=== PATIENT | female | born 1950 ===

== ENCOUNTER 2017-10-31 23:47 | Observation (INO) | payer OTHER ==
[2017-11-01 01:32] LABS: BASO % 0.2 % (0.0-2.0); EOS # 0.2 K/uL (0.0-0.7); EOS % 1.7 % (0.0-4.0); HEMOGLOBIN 13.4 g/dL (12.0-16.0); LYMPH # 2.4 K/uL (1.0-4.3); MEAN CELL VOLUME 93.8 fl (81.0-99.0); MEAN CORPUSCULAR HEMOGLOBIN 31.1 pg (27.0-31.0); MEAN CORPUSCULAR HGB CONC 33.2 g/dL (33.0-37.0); MEAN PLATELET VOLUME 8.8 fl (7.2-11.7); MONO # 0.9 K/uL (0.0-0.8); MONO % 7.8 % (0.0-10.0); NEUT # 7.5 K/uL (1.8-7.0); NEUT % 68.3 % (50.0-75.0); NRBC % 0.1 % (0.0-0.0); RBC 4.32 Mil/uL (3.80-5.20); RED CELL DISTRIBUTION WIDTH 13.5 % (11.5-14.5); WHITE BLOOD COUNT 10.9 K/uL (4.8-10.8)
[2017-11-01 01:48] LABS: ALB/GLOB RATIO 1.1 (1.0-2.1); ALBUMIN 4.2 g/dL (3.5-5.0); ALT/SGPT 25 U/L (9-52); AST/SGOT 20 U/L (14-36); BLOOD UREA NITROGEN 9 mg/dl (7-17); CALCIUM 9.3 mg/dL (8.4-10.2); GFR AFRICAN-AMERICAN > 60; GFR NON-AFRICAN AMERICAN > 60
[2017-11-01] MEDS: Lactated Ringer's 500 ML IV SCH ×2 (01:54→03:22)
[2017-11-01] MEDS ORDERED: levoFLOXacin 500 mg in D5W 500 MG/100 ML BAG IVPB STA (02:41)
[2017-11-01] MEDS ORDERED: levoFLOXacin 500 mg in D5W 500 MG/100 ML BAG IVPB ONE (03:18)
[2017-11-01] MEDS ORDERED: Lactated Ringer's 500 ML IV STA (03:22)
--- NOTE | 2017-11-01 03:26 | ED PDOC ---
HPI: General Adult Time Seen by Provider: 11/01/17 00:39 Chief Complaint (Nursing): Cough, Cold, Congestion Chief Complaint (Provider): Flu-Like Symptoms History Per: Patient History/Exam Limitations: no limitations Onset/Duration Of Symptoms: Other (x1 week) Current Symptoms Are (Timing): Still Present Recently: Treated By A Physician Additional Complaint(s): 67 year old female presents to ED with complaints of flu-like symptoms x1 week and has a past medical history of HTN and diabetes mellitus. (+) fever, cough productive of green phlegm, and throat pain. Notes she was on a course of Amoxicillin that did not improve symptoms. PCP: None Past Medical History Reviewed: Historical Data, Nursing Documentation, Vital Signs Vital Signs: Last Vital Signs Temp 98.2 F 11/01/17 10:30 Pulse 52 L 11/01/17 10:30 Resp 15 11/01/17 10:30 BP 111/65 11/01/17 10:30 Pulse Ox 100 11/01/17 10:30 - Medical History PMH: Diabetes, HTN Denies: HIV, Chronic Kidney Disease - Family History Family History: States: Unknown Family Hx - Social History Current smoker - smoking cessation education provided: No Ex-Smoker (has not smoked in the last 12 months): No Alcohol: None Drugs: Denies - Home Medications Home Medications: Ambulatory Orders Medication Instructions Recorded Glimepiride [Amaryl] 4 mg PO QPM 11/01/17 Glimepiride [Amaryl] 8 mg PO DAILY 11/01/17 Levofloxacin [Levaquin] 750 mg PO DAILY #7 tablet 11/01/17 guaiFENesin/Codeine 10 ml PO ASDIR #100 udc 11/01/17 [Codeine/Guaifenesin 10 MG/5 Ml-100 MG/5 Ml 5] - Allergies Allergies/Adverse Reactions: Allergies Allergy/AdvReac Type Severity Reaction Status Date / Time No Known Allergies Allergy Verified 10/23/14 22:22 Review of Systems ROS Statement: Except As Marked, All Systems Reviewed And Found Negative Constitutional: Positive for: Fever ENT: Positive for: Throat Pain Respiratory: Positive for: Cough (productive of green phlegm) Physical Exam - Reviewed Nursing Documentation Reviewed: Yes Vital Signs Reviewed: Yes - Physical Exam Appears: Positive for: Non-toxic, No Acute Distress (Febrile) Skin: Positive for: Normal Color, Warm, Dry Eye Exam: Positive for: Normal appearance ENT: Positive for: Normal ENT Inspection Neck: Positive for: Normal, Painless ROM, Supple Cardiovascular/Chest: Positive for: Regular Rate, Rhythm. Negative for: Murmur Respiratory: Positive for: Crackles (bibasilar crackles). Negative for: Normal Breath Sounds, Respiratory Distress Gastrointestinal/Abdominal: Positive for: Soft. Negative for: Tenderness Neurologic/Psych: Positive for: Alert, Oriented. Negative for: Motor/Sensory Deficits - Laboratory Results Result Diagrams: 11/01/17 01:28 11/01/17 01:28 - ECG O2 Sat by Pulse Oximetry: 96 (RA) Pulse Ox Interpretation: Normal Medical Decision Making Medical Decision Makin Initial impression: flu-like symptoms Initial plan: * EKG * Labs * CXR * Lactated Ringers IV * Toradol 10mg IVP * Acetaminophen 975mg PO * Blood Cx * Accucheck * Influenza A B * Re-eval 0240 CXR right lower lobe infiltrate Patient will be admitted under Dr. Garcia (INPATIENT MED/SURG) for community acquired PNA. * BNP * Trop I * Levaquin 500mg in 100mL IVPB Scribe Attestation: Documented by Elly Baig acting as a scribe for Topher Lynch MD. DO Scribe Attestation: All medical record entries made by the Scribe were at my direction and personally dictated by me. I have reviewed the chart and agree that the record accurately reflects my personal performance of the history, physical exam, medical decision making, and the department course for this patient. I have also personally directed, reviewed, and agree with the discharge instructions and disposition. Disposition - Clinical Impression Clinical Impression: Pneumonia - Patient ED Disposition Is Patient to be Admitted: Yes (under Dr. Garcia) - Disposition Disposition Time: 03:30 Condition: FAIR - Pt Status Changed To: Hospital Disposition Of: Inpatient (INPATIENT MED/SURG) - Admit Certification Admit to Inpatient:: After my assessment, the patient will require hospitalization for at least two midnights. This is because of the severity of symptoms shown, intensity of services needed, and/or the medical risk in this patient being treated as an outpatient.
[2017-11-01 03:32] LABS: B-TYPE NATRIURETIC PEPTIDE 220 pg/ml (0-900)
--- NOTE | 2017-11-01 04:02 | CP.PCM.HP ---
History of Present Illness - History of Present Illness History of Present Illness: Derrick Larson MD Chief Complaint: Cough/Fever The patient was seen and examined in the ED HPI: 67 years old female with Hx of DM II comes with one week of cough with productive green sputum, chills, congestion, throat ache and saw her PMD receiving Amoxicillin which did not improve symptoms. No significant chest pain nor SOB. No prior hx of lung pathology. No abdominal pain nor diarrhea. No urinary symptoms. PMH: DM II PSH: Denies SH: No illegal drug use. Never smoked; No Alcohol use; Live with family FH: States: No known family hx Allergies: NKDA Medication: Reviewed Present on Admission - Present on Admission Any Indicators Present on Admission: Yes History of DVT/PE: No History of Uncontrolled Diabetes: Yes Urinary Catheter: No Decubitus Ulcer Present: No Review of Systems - Constitutional Constitutional: Anorexia, Chills, Fever, Headache - EENT Eyes: Requires Corrective Lenses. absent: Diplopia, Floaters, Sees Flashes Ears: absent: Decreased Hearing, Ear Discharge, Ear Pain, Tinnitus Nose/Mouth/Throat: absent: Epistaxis, Nasal Congestion, Nasal Discharge, Nasal Trauma - Cardiovascular Cardiovascular: Chest Pain, Dyspnea, Edema - Respiratory Respiratory: Cough, Chest Congestion. absent: Wheezing, Stridor - Gastrointestinal Gastrointestinal: absent: Abdominal Pain, Constipation, Diarrhea, Nausea, Vomiting - Genitourinary Genitourinary: absent: Dysuria, Flank Pain, Hematuria, Urinary Frequency - Musculoskeletal Musculoskeletal: absent: Arthralgias, Back Pain, Muscle Cramps, Myalgias - Integumentary Integumentary: absent: Pruritus, Rash, Skin Ulcer, Swelling - Neurological Neurological: Headaches. absent: Confusion, Dizziness, Focal Weakness, Weakness - Psychiatric Psychiatric: absent: Anxiety, Depression, Panic Attacks - Endocrine Endocrine: absent: Palpitations, Polydipsia, Polyphagia, Polyuria - Hematologic/Lymphatic Hematologic: absent: Easy Bleeding, Easy Bruising Past Patient History - Past Medical History & Family History Past Medical History?: Yes - Past Social History Smoking Status: Never Smoked Chewing Tobacco Use: No Cigar Use: No Alcohol: None Drugs: Denies Home Situation {Lives}: With Family - CARDIAC Hx Hypertension: Yes - PULMONARY Hx Respiratory Disorders: No - NEUROLOGICAL Hx Neurological Disorder: No - HEENT Hx HEENT Problems: No - RENAL Hx Chronic Kidney Disease: No - ENDOCRINE/METABOLIC Hx Endocrine Disorders: Yes (DM TYPE 2) Hx Diabetes Mellitus Type 2: Yes - HEMATOLOGICAL/ONCOLOGICAL Hx Blood Disorders: No Hx Human Immunodeficiency Virus (HIV): No - INTEGUMENTARY Hx Dermatological Problems: No - MUSCULOSKELETAL/RHEUMATOLOGICAL Hx Falls: No - GASTROINTESTINAL Hx Gastrointestinal Disorders: Yes Hx Colitis: Yes - GENITOURINARY/GYNECOLOGICAL Hx Genitourinary Disorders: No - PSYCHIATRIC Hx Psychophysiologic Disorder: No Hx Substance Use: No - SURGICAL HISTORY Hx Surgeries: No - ANESTHESIA Hx Anesthesia: No Meds Allergies/Adverse Reactions: Allergies Allergy/AdvReac Type Severity Reaction Status Date / Time No Known Allergies Allergy Verified 10/23/14 22:22 Physical Exam - Constitutional Appears: No Acute Distress - Head Exam Head Exam: ATRAUMATIC, NORMAL INSPECTION, NORMOCEPHALIC - Eye Exam Eye Exam: EOMI, Normal appearance Pupil Exam: NORMAL ACCOMODATION, PERRL - ENT Exam ENT Exam: Mucous Membranes Dry, Normal Exam, Normal External Ear Exam - Neck Exam Neck exam: Positive for: Full Rom, Normal Inspection. Negative for: Lymphadenopathy, Tenderness - Respiratory Exam Respiratory Exam: absent: Rhonchi, Wheezes, Stridor Additional comments: Inspiratory rales at left lung base - Cardiovascular Exam Cardiovascular Exam: REGULAR RHYTHM, RRR, +S1, +S2. absent: Gallop, JVD - GI/Abdominal Exam GI & Abdominal Exam: Normal Bowel Sounds, Soft. absent: Hypoactive Bowel Sounds , Mass, Tenderness - Rectal Exam Rectal Exam: Deferred - Extremities Exam Extremities exam: Positive for: full ROM, normal inspection. Negative for: calf tenderness, pedal edema - Back Exam Back exam: NORMAL INSPECTION. absent: CVA tenderness (L), CVA tenderness (R) - Neurological Exam Neurological exam: Alert, CN II-XII Intact, Oriented x3, Reflexes Normal - Psychiatric Exam Psychiatric exam: Normal Affect, Normal Mood - Skin Skin Exam: Dry, Intact, Normal Color, Warm Results - Vital Signs Recent Vital Signs: Last Vital Signs Temp 99.9 F H 11/01/17 00:07 Pulse 59 L 11/01/17 02:28 Resp 18 11/01/17 02:28 BP 142/68 11/01/17 00:07 Pulse Ox 96 11/01/17 03:31 - Labs Result Diagrams: 11/01/17 01:28 11/01/17 01:28 Labs: Laboratory Results - last 24 hr 11/01/17 11/01/17 11/01/17 01:20 01:28 01:28 WBC 10.9 H RBC 4.32 Hgb 13.4 Hct 40.5 MCV 93.8 MCH 31.1 H MCHC 33.2 RDW 13.5 Plt Count 197 MPV 8.8 Neut % (Auto) 68.3 Lymph % (Auto) 22.0 Morrow % (Auto) 7.8 Eos % (Auto) 1.7 Baso % (Auto) 0.2 Neut # (Auto) 7.5 H Lymph # (Auto) 2.4 Morrow # (Auto) 0.9 H Eos # (Auto) 0.2 Baso # (Auto) 0.0 Sodium 138 Potassium 3.9 Chloride 101 Carbon Dioxide 26 Anion Gap 15 BUN 9 Creatinine 0.6 L Est GFR ( Amer) > 60 Est GFR (Non-Af Amer) > 60 POC Glucose (mg/dL) Random Glucose 161 H Lactic Acid Calcium 9.3 Total Bilirubin 0.6 AST 20 ALT 25 Alkaline Phosphatase 65 Troponin I NT-Pro-B Natriuret Pep Total Protein 8.0 Albumin 4.2 Globulin 3.8 Albumin/Globulin Ratio 1.1 Influenza Typ A,B (EIA) Negative for flu a/b 11/01/17 11/01/17 11/01/17 01:28 01:31 03:07 WBC RBC Hgb Hct MCV MCH MCHC RDW Plt Count MPV Neut % (Auto) Lymph % (Auto) Morrow % (Auto) Eos % (Auto) Baso % (Auto) Neut # (Auto) Lymph # (Auto) Morrow # (Auto) Eos # (Auto) Baso # (Auto) Sodium Potassium Chloride Carbon Dioxide Anion Gap BUN Creatinine Est GFR ( Amer) Est GFR (Non-Af Amer) POC Glucose (mg/dL) 142 H Random Glucose Lactic Acid 1.9 Calcium Total Bilirubin AST ALT Alkaline Phosphatase Troponin I < 0.0120 NT-Pro-B Natriuret Pep 220 Total Protein Albumin Globulin Albumin/Globulin Ratio Influenza Typ A,B (EIA) - EKG Data EKG comments: Sinus with PAC 66/min - Imaging and Cardiology Chest x-ray Status: Image reviewed by me Additional comment: Patchy infiltrate at both lung bases Assessment & Plan - Assessment and Plan (Free Text) Assessment: #. Multilobar Pneumonia #. DM II with hyperglycemia #. Leukocytosis Plan: 67 years old female with Hx of DM II comes with one week of cough with productive green sputum, chills, congestion, throat ache and saw her PMD receiving Amoxicillin which did not improve symptoms. #. 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 DM II with hyperglycemia - Regular Insulin sliding scale according to Accucheck - HbA1c - Metformin on hold for 48 hrs because of Contrast dye #. Leukocytosis - Follow WBC #. DVT Prophylaxis with Lovenox #.Code Status: Full - Date & Time Date: 11/01/17 Time: 04:02
[2017-11-01] MEDS ORDERED: Lactated Ringer's 1,000 ML IV SCH (04:30)
[2017-11-01] MEDS ORDERED: guaiFENesin 100 mg/5 ml Syrup UD PO PRN (04:35)
[2017-11-01] MEDS ORDERED: Sodium Chloride 0.9% 50 ML IV ONE (04:46)
[2017-11-01] MEDS ORDERED: Iohexol 300 100 ML IJ ONE (04:46)
[2017-11-01] MEDS ORDERED: Sodium Chloride 3% for Inhalation 4 ML VIAL.NEB IH PRN (05:05)
--- NOTE | 2017-11-01 05:54 | CT ---
EXAM: CT Chest With Intravenous Contrast CLINICAL HISTORY: 67 years old, female; Abnormal findings; Abnormal radiologic exam of lung or chest; Additional info: Patchy infiltrate at both bases/fever/cough TECHNIQUE: Axial computed tomography images of the chest with intravenous contrast. All CT scans at this facility use one or more dose reduction techniques, viz.: automated exposure control; ma/kV adjustment per patient size (including targeted exams where dose is matched to indication; i.e. head); or iterative reconstruction technique. 681 images are submitted. Coronal and sagittal reformatted images were created and reviewed. Axial reformatted images were created and reviewed. CONTRAST: 95 mL of [id number] administered intravenously. COMPARISON: CR - CHEST TWO VIEWS (PA/LAT) 2017-11-01 01:14 FINDINGS: Lungs: Moderate parabronchial cuffing, which can be seen with bronchitis, reactive airway disease or viral pneumonitis versus mild failure.Bibasilar right middle lobe and lingular nonspecific infiltrates and consolidation are present, consistent with atelectasis or pneumonia. Right middle lobe calcified pulmonary parenchymal granuloma. Pleural space: Unremarkable. No pneumothorax. No significant effusion. Heart: Cardiomegaly. No significant pericardial effusion. Mediastinum: Small hiatal hernia. 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 No discrete measurable nodule is identified. Correlation with thyroid function tests may be helpful. Bones/joints: Unremarkable. No acute fracture. No dislocation. Soft tissues: Unremarkable. Vasculature: Bovine aortic arch. No thoracic aortic aneurysm. Lymph nodes: Small subcentimeter para-aortic lymph nodes. Bilateral hilar lymph nodes. Adrenals: Nonspecific nodular thickening of adrenal glands. Kidneys and ureters: Tiny right renal hypodensities. Stomach and bowel: Nonspecific gastric thickening likely due to under distention. Correlation with clinical data is recommended if gastritis is suspected. IMPRESSION: 1. 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 No discrete measurable nodule is identified. Correlation with thyroid function tests may be helpful. 2. Moderate parabronchial cuffing, which can be seen with bronchitis, reactive airway disease or viral pneumonitis versus mild failure.Bibasilar right middle lobe and lingular nonspecific infiltrates and consolidation are present, consistent with atelectasis or pneumonia. Correlation with internal medicine pulmonary history evaluation and further workup or followup as recommended by patient's clinical data.
[2017-11-01] MEDS ORDERED: Insulin Regular 100 units/ml SC SCH (07:30)
--- NOTE | 2017-11-01 08:00 | CP.PCM.PN ---
Objective - Vital Signs/Intake and Output Vital Signs (last 24 hours): Temp Pulse Resp BP Pulse Ox 97.6 F 58 L 18 143/66 97 11/01/17 05:10 11/01/17 05:10 11/01/17 05:10 11/01/17 05:10 11/01/17 05:10 - Medications Medications: Current Medications Acetaminophen (Tylenol 325mg Tab) 650 mg PO Q4 PRN PRN Reason: Headache Enoxaparin Sodium (Lovenox) 40 mg SC DAILY MEHREEN PRN Reason: Protocol Guaifenesin (Robitussin) 100 mg PO Q4 PRN PRN Reason: Cough Levofloxacin/Dextrose (Levaquin 750mg) 750 mg in 150 mls @ 100 mls/hr IVPB DAILY MEHREEN PRN Reason: Protocol Vancomycin HCl 1 gm/ Sodium (Chloride) 250 mls @ 166.667 mls/hr IVPB Q12 MEHREEN PRN Reason: Protocol Last Admin: 11/01/17 05:25 Dose: 166.667 mls/hr Lactated Ringer's (Lactated Ringer's) 1,000 mls @ 100 mls/hr IV .Q10H MEHREEN Last Admin: 11/01/17 04:56 Dose: 100 mls/hr Insulin Human Regular (Humulin R) 0 units SC ACHS MEHREEN PRN Reason: Protocol - Labs Labs: 11/01/17 01:28 11/01/17 01:28 Assessment and Plan - Assessment and Plan (Free Text) Assessment: Moderate parabronchial cuffing, which can be seen with bronchitis, reactive airway disease or viral pneumonitis versus mild failure.Bibasilar right middle lobe and lingular nonspecific infiltrates and consolidation are present, consistent with atelectasis or pneumonia.
[2017-11-01 08:25] VITALS: RESP 15
[2017-11-01] MEDS ORDERED: Enoxaparin 40 mg Syringe SC SCH (09:00)
--- NOTE | 2017-11-01 09:17 | RAD ---
HISTORY: COMPARISON: No prior. TECHNIQUE: Chest PA and lateral FINDINGS: LINES AND TUBES: None. LUNG AND PLEURA: The lungs are well inflated. There is patchy airspace disease in the lower lobes. HEART AND MEDIASTINUM: The heart is not enlarged. The hilar and mediastinal contours are within normal limits. SKELETAL STRUCTURES: The bony structures are within normal limits for the patient's age. VISUALIZED UPPER ABDOMEN: Normal. OTHER FINDINGS: None. IMPRESSION: Patchy airspace disease in the lower lobes may represent subsegmental atelectasis however superimposed pneumonia cannot be excluded. Follow-up is advised.
[2017-11-01 10:41] VITALS: BP 111/65; PULSE 52; TEMP 98.2
--- NOTE | 2017-11-01 16:30 | CP.PCM.DIS ---
Provider - Provider Date of Admission: 11/01/17 04:23 Attending physician: Jl Garcia Primary care physician: None Time Spent in preparation of Discharge (in minutes): 20 Hospital Course - Lab Results Lab Results: Most Recent Lab Values WBC 10.9 K/uL (4.8-10.8) H 11/01/17 01:28 RBC 4.32 Mil/uL (3.80-5.20) 11/01/17 01:28 Hgb 13.4 g/dL (12.0-16.0) 11/01/17 01:28 Hct 40.5 % (34.0-47.0) 11/01/17 01:28 MCV 93.8 fl (81.0-99.0) 11/01/17 01:28 MCH 31.1 pg (27.0-31.0) H 11/01/17 01:28 MCHC 33.2 g/dL (33.0-37.0) 11/01/17 01:28 RDW 13.5 % (11.5-14.5) 11/01/17 01:28 Plt Count 197 K/uL (130-400) 11/01/17 01:28 MPV 8.8 fl (7.2-11.7) 11/01/17 01:28 Neut % (Auto) 68.3 % (50.0-75.0) 11/01/17 01:28 Lymph % (Auto) 22.0 % (20.0-40.0) 11/01/17 01:28 Perkins % (Auto) 7.8 % (0.0-10.0) 11/01/17 01:28 Eos % (Auto) 1.7 % (0.0-4.0) 11/01/17 01:28 Baso % (Auto) 0.2 % (0.0-2.0) 11/01/17 01:28 Neut # (Auto) 7.5 K/uL (1.8-7.0) H 11/01/17 01:28 Lymph # (Auto) 2.4 K/uL (1.0-4.3) 11/01/17 01:28 Perkins # (Auto) 0.9 K/uL (0.0-0.8) H 11/01/17 01:28 Eos # (Auto) 0.2 K/uL (0.0-0.7) 11/01/17 01:28 Baso # (Auto) 0.0 K/uL (0.0-0.2) 11/01/17 01:28 Sodium 138 mmol/l (132-148) 11/01/17 01:28 Potassium 3.9 MMOL/L (3.6-5.0) 11/01/17 01:28 Chloride 101 mmol/L (98-107) 11/01/17 01:28 Carbon Dioxide 26 mmol/L (22-30) 11/01/17 01:28 Anion Gap 15 (10-20) 11/01/17 01:28 BUN 9 mg/dl (7-17) 11/01/17 01:28 Creatinine 0.6 mg/dl (0.7-1.2) L 11/01/17 01:28 Est GFR ( Amer) > 60 11/01/17 01:28 Est GFR (Non-Af Amer) > 60 11/01/17 01:28 POC Glucose (mg/dL) 139 mg/dL (65-110) H 11/01/17 08:29 Random Glucose 161 mg/dL (65-105) H 11/01/17 01:28 Lactic Acid 1.9 MMOL/L (0.7-2.1) 11/01/17 01:28 Calcium 9.3 mg/dL (8.4-10.2) 11/01/17 01:28 Total Bilirubin 0.6 mg/dl (0.2-1.3) 11/01/17 01:28 AST 20 U/L (14-36) 11/01/17 01:28 ALT 25 U/L (9-52) 11/01/17 01:28 Alkaline Phosphatase 65 U/L (38-126) 11/01/17 01:28 Troponin I < 0.0120 ng/mL (0.00-0.120) 11/01/17 03:07 NT-Pro-B Natriuret Pep 220 pg/ml (0-900) 11/01/17 03:07 Total Protein 8.0 G/DL (6.3-8.2) 11/01/17 01:28 Albumin 4.2 g/dL (3.5-5.0) 11/01/17 01:28 Globulin 3.8 gm/dL (2.2-3.9) 11/01/17 01:28 Albumin/Globulin Ratio 1.1 (1.0-2.1) 11/01/17 01:28 Influenza Typ A,B (EIA) Negative for flu a/b (NEGATIVE) 11/01/17 01:20 - Hospital Course Hospital Course: 67 years old female with Hx of DM II came in complaining of headache , throat pain ,non productive coughing spells and some SOB Patient states that she was not feeling very well last week, had coughing spells, sputum production nasal congestion .Her PMD gave her Amoxicillin for 5 days that she just finished . Her son decided to bring her to ER for evaluation Her blood work up showed normal WBC 10 k, normal renal and liver fxn, influenza negative CXr showed some patchy lower lobe airway disease. She was placed under observation , started on O2 via NC, duonebs , levofloxacin IV and given vancomycin 1 g Iv x 1 dose Moderate parabronchial cuffing, which can be seen with bronchitis, reactive airway disease or viral pneumonitis versus mild failure.Bibasilar right middle lobe and lingular nonspecific infiltrates and consolidation are present, consistent with atelectasis or pneumonia. Patient clinically improved , feeling much better , saturating 100 % in RA , afebrile. Her physical exam showed no oropharyngeal exudates and lung exam was normal.She still has dry coughing spells patient is able to tolerate Po intake given the fact that patient was just treated with amoxicillin for 5 days and imaging showing patchy infiltrates most likely diagnosis is Community acquired Pneumonia All test results explained to patient and son and all questions answered Will discharge patient home on PO levofloxacin 750 mg po daily for 7 days and Robitussion with Codeine PRN for cough suppression Follow up with [facility] 1. Multilobar community acquired Pneumonia had received 5 days of amoxicillin PO Will d/c on Levofloxacin 750 mg po daily for 7 days 2.DM II with hyperglycemia continue home meds , amaryl Discharge Exam - Head Exam Head Exam: ATRAUMATIC, NORMAL INSPECTION, NORMOCEPHALIC - Eye Exam Eye Exam: EOMI, Normal appearance, PERRL Pupil Exam: NORMAL ACCOMODATION - ENT Exam ENT Exam: Mucous Membranes Moist, Normal Exam - Neck Exam Neck exam: Full Rom, Normal Inspection - Respiratory Exam Respiratory Exam: Clear to PA & Lateral, NORMAL BREATHING PATTERN, UNREMARKABLE. absent: Rhonchi, Wheezes, Respiratory Distress - Cardiovascular Exam Cardiovascular Exam: REGULAR RHYTHM, RRR, +S1, +S2. absent: JVD - GI/Abdominal Exam GI & Abdominal Exam: Normal Bowel Sounds, Soft. absent: Distended, Guarding, Rebound, Tenderness - Rectal Exam Rectal Exam: Deferred - Extremities Exam Extremities exam: normal capillary refill, normal inspection, pedal pulses present - Back Exam Back exam: NORMAL INSPECTION - Neurological Exam Neurological exam: Alert, CN II-XII Intact, Reflexes Normal - Psychiatric Exam Psychiatric exam: Normal Affect, Normal Mood - Skin Skin Exam: Dry, Intact, Normal Color, Warm Discharge Plan - Discharge Medications Prescriptions: guaiFENesin/Codeine [Codeine/Guaifenesin 10 MG/5 Ml-100 MG/5 Ml 5] 10 ml PO ASDIR #100 udc Levofloxacin [Levaquin] 750 mg PO DAILY #7 tablet - Follow Up Plan Condition: GOOD Disposition: HOME/ ROUTINE Patient education suggested?: Yes Instructions: Pneumonia in Adults, Pneumonia, Adult (DC) Referrals: [facility] [place] [Outside]
--- NOTE | 2017-11-01 21:43 | CARD ---
APPROVED REPORT EKG Measurement Heart [id number] <Conclusion> Sinus rhythm with premature atrial complexes Otherwise normal ECG
[2017-11-02] MEDS ORDERED: levoFLOXacin 750 mg in D5W 750 MG/150 ML BAG IVPB SCH (09:00)
[2017-11-04 00:08] VITALS: O2SAT 96
== END 2017-11-01 11:20 | disposition home or self-care (01) ==
LOC: H.ER 23:47 → H.ERHOLD 11-01 04:23 → INTOOBSV 11-01 04:23
PROVIDERS: ADMIT Internal Medicine; ATTEND Internal Medicine
DX: J18.9 Pneumonia, unspecified organism (principal); E11.65 Type 2 diabetes mellitus with hyperglycemia; I10 Essential (primary) hypertension; K52.9 Noninfective gastroenteritis and colitis, unspecified; Z79.84 Long term (current) use of oral hypoglycemic drugs
CPT/HCPCS: 71046; 71260; 80053; 82948; 83605; 83880; 84484; 85025; 87040; 87804; 93005; 96361; 96365; 96367; 96372; 96375; 99284; G0378; J1650; J1885; J7120; Q9967